=== PATIENT | male | born 1990 | race Caucasian/White ===

== ENCOUNTER 2020-12-17 13:36 | Emergency (ER) | payer MEDICAID ==
[~2020-12-17] VITALS: Ht 190.5 cm; Wt 104.5 kg
[2020-12-17 13:39] VITALS: BP 117/62
[2020-12-17] MEDS ORDERED: LIDOCAINE/PF 1% 2 ML VIAL IM ONE (14:30)
[2020-12-17] MEDS ORDERED: CefTRIAXone SODIUM 1 GM/VIAL IM ONE (14:30)
== END 2020-12-17 15:02 | disposition home or self-care (01) ==
LOC: EMS 13:38
DX: L03.116 Cellulitis of left lower limb (principal); L03.115 Cellulitis of right lower limb; J45.909 Unspecified asthma, uncomplicated; F17.210 Nicotine dependence, cigarettes, uncomplicated
CPT/HCPCS: 96372; 99283; J0696; J3490